=== PATIENT | male | born 1955 | race Caucasian/White ===

== ENCOUNTER 2021-08-12 12:28 | Outpatient (CLI) | payer MEDICARE, MEDICAID ==
[~2021-08-12] VITALS: Ht 165.1 cm; Wt 54.0 kg
[~2021-08-12 12:28] MED LIST: ATOR1TAB21 PO; CALC200T15 PO; FERR325T3 PO; FLUD0.1T PO; LACT10SO3 PO; LAMO150T3 PO; META0.52 PO; MULT-90 PO; MULTCAP PO; OLOP2.5D3 OU; OXYB5TAB10 PO; PANT40TA29 PO; REFR0.5D8 OU; SENN-80 PO; SUCR1SS PO; TERB1CRE2 TOP; TESS100C PO; VITMTA PO
[2021-08-12 12:40] VITALS: BP 111/59
[2021-08-12] MEDS ORDERED: ZOLEDRONIC ACID 5 MG in IV 1 EA IV ONE (13:00)
[2021-08-12 13:43] VITALS: BP 113/62
== END 2021-08-12 13:45 | disposition home or self-care (01) ==
LOC: M INFU 12:28
PROVIDERS: ATTEND Internal Medicine Endocrinology, Diabetes & Metabolism
DX: M81.0 Age-related osteoporosis without current pathological fracture (principal); Z88.0 Allergy status to penicillin; Z88.8 Allergy status to other drugs, medicaments and biological substances
CPT/HCPCS: 96365; J3489

== ENCOUNTER 2022-11-24 15:01 | Outpatient (CLI) | payer MEDICARE, MEDICAID ==
[~2022-11-24 15:01] MED LIST changes: +D3 +TAB PO; +SANI2SUP PR; +SENN-186 PO; -SENN-80 PO
[2022-11-24] MEDS ORDERED: ZOLEDRONIC ACID 5 MG in IV 1 EA IV ONE (16:00)
[2022-11-24 16:10] VITALS: BP 156/81; O2SAT 98
== END 2022-11-24 16:10 | disposition home or self-care (01) ==
LOC: M INFU 15:01
PROVIDERS: ATTEND Internal Medicine Endocrinology, Diabetes & Metabolism
DX: M81.0 Age-related osteoporosis without current pathological fracture (principal); Z88.0 Allergy status to penicillin; Z88.6 Allergy status to analgesic agent
CPT/HCPCS: 96365; J3489

== ENCOUNTER → 2024-02-16 | Outpatient (CLI) | payer MEDICARE, MEDICAID ==
[~2024-02-16] MED LIST changes: -OXYB5TAB10 PO; +OXYB5TAB14 PO
[2024-02-16 11:15] VITALS: BP 151/77; O2SAT 100
[2024-02-16] MEDS: ZOLEDRONIC ACID 5 MG in IV 1 EA IV ONE (12:00)
[2024-02-16 12:35] VITALS: BP 125/75; O2SAT 100
== END ==
LOC: M INFU 11:04
PROVIDERS: ATTEND Internal Medicine Endocrinology, Diabetes & Metabolism
DX: M81.0 Age-related osteoporosis without current pathological fracture (principal); Z88.0 Allergy status to penicillin; Z88.6 Allergy status to analgesic agent; Z88.8 Allergy status to other drugs, medicaments and biological substances
CPT/HCPCS: 96365; J3489